=== PATIENT | male | born 1960 | race Caucasian/White ===

== ENCOUNTER 2017-12-24 19:01 | Emergency (ER) | payer OTHER, SELFPAY ==
[2017-12-24 19:09] VITALS: BP 170/92; PULSE 66; RESP 20; TEMP 36.9; O2SAT 100; BMI 23.0
--- NOTE | 2017-12-24 19:12 | ED_ITS ---
HPI - Neck Pain/Injury General Chief Complaint: Neck Pain/Injury Stated Complaint: right side neck/jaw pain since yesterday Time Seen by Provider: 12/24/17 19:11 Source: patient Mode of arrival: ambulatory Limitations: no limitations History of Present Illness HPI Narrative: Otherwise healthy 57-year-old male here for evaluation of right- sided neck pain. He states that has been going on for the past couple days. No sinus congestion or sore throat or ear pain or dental pain. He has never had anything like this before. Has been taking [id number] ibuprofen which seems to help the symptoms but they come back after approximately 5 hr. Related Data Allergies Allergy/AdvReac Type Severity Reaction Status Date / Time No Known Drug Allergies Allergy Verified 12/24/17 19:11 Review of Systems Constitutional Denies fever(s) and Denies headache(s) ENT Ears, Nose, Mouth, and Throat: Denies otalgia, Denies facial pain, Denies headache(s), Reports neck pain (Right-sided), Denies sinus pain, Denies sinus pressure and Denies sore throat Cardiovascular Denies chest pain and Denies dyspnea Respiratory Denies cough and Denies dyspnea Musculoskeletal Denies myalgias, Denies arthralgias and Reports neck pain (Right-sided) Integumentary/Breasts Denies lesions and Denies rash Neurologic Denies headache(s) [facility] Medical History Healthy adult (Acute) Surgical History No pertinent past surgical history (Acute) Social History Smoking Status: Never smoker Exam Initial Vital Signs Initial Vital Signs: Vital Signs Temperature 98.4 F 12/24/17 19:09 Pulse Rate 66 12/24/17 19:09 Respiratory Rate 20 12/24/17 19:09 Blood Pressure 170/92 H 12/24/17 19:09 Pulse Oximetry 100 12/24/17 19:09 Const General: cooperative, healthy appearing, comfortable, well developed, well groomed and No acute distress Orientation: alert, awake and oriented x3 HENMT Head: normal to inspection and normocephalic Ears: TM's normal bilaterally Nose: external nose normal Face and sinus: normal facial exam, sinuses nontender and no abrasions Mouth: oral mucosae normal Teeth and gingiva: other (Bottom right 2nd molar cracked tooth not tender to palpation) Throat: other (Right-sided anterior cervical and submandibular sub cm freely movable tender lymph nodes) Resp Effort & Inspection: normal respiratory effort Auscultation: clear to auscultation bilaterally Skin Lesions: no lesions Rashes: no rashes Psych Appearance: grossly normal and well kempt Course Vital Signs - 8 hr 12/24/17 19:09 Temperature 98.4 F Pulse Rate 66 Respiratory Rate 20 Blood Pressure 170/92 H Pulse Oximetry 100 MDM - Neck Pain/Injury MDM Narrative Medical decision making narrative: Patient with 2 right-sided anterior cervical and submandibular lymph nodes. No overlying skin changes. Does have a cracked bottom right molar however this is not tender to palpation and no signs of dental infection. The rest of his exam was unremarkable. I do suspect that his symptoms are the result of lymphadenopathy. We did discuss this. Did discuss the use of anti-inflammatories and Tylenol. We also discussed the use of decongestants. He was given return precautions. He expressed understanding and agreement with plan. Discharge Plan Departure Patient Disposition: Home Clinical Impression: Lymphadenopathy Instructions: DI for Lymphadenopathy Activity Restrictions/Additional Instructions: You can do 600 mg of Motrin/ibuprofen/Advil every 8 hr. In addition to this you can do 650 mg which is 2 regular strength Tylenol every 4 hr. If you start to feel congested or have a sore throat you can start taking a decongestant such as Claritin/Lori/Zyrtec Ortho generic version of 1 of these medications. Call your primary care doctor for follow-up. All of these medications can be purchased [id number] Stand Alone Forms: Work/School Restrictions
--- NOTE | 2017-12-24 19:32 | PC.NURSE ---
right neck pain under jaw. node swollen.
--- NOTE | 2017-12-28 17:51 | PC.NURSE ---
Attempted follow up call,no answer
== END 2017-12-24 19:34 | disposition home or self-care (01) ==
PROVIDERS: Emergency Provider Emergency Medicine
DX: R59.1 Generalized enlarged lymph nodes (principal)
CPT/HCPCS: 99282

== ENCOUNTER 2020-07-28 12:17 | Emergency (ER) | payer OTHER, SELFPAY ==
[2020-07-28 12:33] VITALS: BP 144/94; PULSE 74; RESP 12; TEMP 37; O2SAT 98; BMI 23.0
--- NOTE | 2020-07-28 12:40 | PC.NURSE ---
wound culture of neck collected, sent to lab with triage
--- NOTE | 2020-07-28 14:31 | ED.WOUNDLAC ---
HPI - Wound/Laceration General Chief Complaint: Wound/Laceration Stated Complaint: BACK OF HEAD INFECTION Time Seen by Provider: 07/28/20 12:20 Source: patient Mode of arrival: Ambulatory Limitations: no limitations History of Present Illness HPI narrative: 60-year-old male nonsmoker with noncontributory medical history presents with a chief complaint of a painful bump on the back of his neck that has been draining foul-smelling fluid for the past few days and has become increasingly painful. It hurts him worse to move his head or neck and improves with rest. He denies any fever or chills nor nausea, vomiting or diarrhea. He denies any trouble swallowing or breathing. He denies any neurologic symptoms such as numbness, tingling, weakness nor blurred vision or trouble with speech. He states that he thinks he had a small ?pimple ?many years ago but otherwise denies any significant history of skin infection. Onset (ago): day(s) Location: neck Body four view annotation: 1. Patient tetanus UTD: Yes Associated symptoms: pain Treatments prior to arrival: bandage Related Data Previous Rx's Medication Instructions Recorded doxycycline hyclate 100 mg PO BID #20 tab 07/28/20 hydrocodone-acetaminophen 1 tab PO Q4-6H PRN #10 tab 07/28/20 Allergies Allergy/AdvReac Type Severity Reaction Status Date / Time No Known Drug Allergies Allergy Verified 07/28/20 12:39 Review of Systems Constitutional Constitutional: Denies chills, Denies fatigue, Denies fever(s), Denies frequent falls, Denies lethargy and Denies weakness Eyes Eyes: Denies change in vision, Denies eye discharge, Denies irritation and Denies loss of vision ENT Ears, Nose, Mouth, and Throat: Denies change in voice, Denies dizziness, Denies neck pain, Denies sore throat and Denies throat swelling Cardiovascular Cardiovascular: Denies chest pain, Denies irregular heart rhythm, Denies lightheadedness, Denies palpitations, Denies dyspnea, Denies dyspnea on exertion and Denies orthopnea Respiratory Respiratory: Denies cough, Denies dyspnea, Denies dyspnea on exertion and Denies wheezing Gastrointestinal Gastrointestinal: Denies abdominal pain, Denies change in bowel habits, Denies diarrhea, Denies nausea and Denies vomiting Musculoskeletal Musculoskeletal: Denies neck pain and Denies numbness Integumentary/Breasts Skin/Breast: Denies pruritus, Reports erythema, Denies rash, Reports skin pain, Reports skin swelling and Reports wounds Neurologic Neurologic: Denies behavioral changes, Denies confusion, Denies dizziness, Denies frequent falls, Denies loss of vision, Denies numbness and Denies weakness Psychiatric Psychiatric: Denies anxiety, Denies behavioral changes, Denies confusion, Denies depression, Denies homicidal ideation and Denies suicidal ideation Endocrine Endocrine: Denies fatigue, Denies flushing and Denies palpitations Hematologic/Lymphatic Hematologic/Lymphatic: Denies easy bruising Allergic/Immunologic Allergic/Immunologic: Denies urticaria, Denies throat swelling and Denies wheezing Patient History Medical History Healthy adult Surgical History No pertinent past surgical history Social History Smoking Status: Never smoker Smoking Status: Never smoker alcohol intake frequency: 0-2 drinks per day Substance Use Type: does not use Exam Narrative Exam Narrative: GEN: AOx3 and in mild distress EYES: Pupils are equal, round, and reactive to light and accommodation. Extraoccular muscles are intact bilaterally. There is no subconjunctival hemorrhage or exudate. NECK: 2 x 3 cm fluctuant painful mass at the base of the neck with some spontaneously draining pustules consistent with abscess or infected sebaceous cyst. Very minimal surrounding erythema or induration. CHEST: Lungs are clear to auscultation bilaterally and free of wheezes, rales, or rhonchi. Heart rate is regular rhythm, there are no murmurs, clicks, rubs, or gallops. There is no chest wall tenderness. ABD: Abdomen is soft and nontender. There is no guarding or rebound. Bowel sounds are normal in all 4 quadrants. There is no mass or organomegaly. EXT: Full painless ROM of all extremities with no loss of sensation or strength. SKIN: Warm, pink, and dry. No erythema or rash Initial Vital Signs Initial Vital Signs: Vital Signs Temperature 98.6 F 07/28/20 12:33 Pulse Rate 74 07/28/20 12:33 Respiratory Rate 12 07/28/20 12:33 Blood Pressure 144/94 H 05/11/21 12:33 Pulse Oximetry 98 07/28/20 12:33 Procedures Abscess I/D I&D #1: Site: neck Local Anesthetic: lidocaine 1% and with epi Amount of anesthesia used (mL): 4 Amount of fluid expressed (mL): 10 (Sebaceous material as well) Irrigation: No Packing used?: none Complications: pain Course Orders Ordered: Discontinued Medications Lidocaine/Epinephrine (Lidocaine 1% W/Epi) 1 ml SUBCUT NOW ONE Stop: 07/28/20 14:37 Last Admin: 07/28/20 15:18 Dose: 1 ml Documented by: CLOTILDE Vital Signs Vital signs: Vital Signs - 8 hr 07/28/20 12:33 Temperature 98.6 F Pulse Rate 74 Respiratory Rate 12 Blood Pressure 144/94 H Pulse Oximetry 98 MDM - Wound/Laceration MDM Narrative Medical decision making narrative: History and physical exam are consistent with an infected sebaceous cyst. It is large but was appropriately drained patient feels significant improvement and increased range of motion after the procedure. He is given extensive return precautions and has had his questions answered to his apparent satisfaction Discharge Plan Departure Patient Disposition: Home Clinical Impression: Abscess Instructions: DI for Skin Abscess Activity Restrictions/Additional Instructions: *You have been diagnosed with [spontaneously draining posterior neck abscess after incision and drainage.] *What to do: *Please continue to take your regular medications as directed. [x] New medication prescriptions sent to your pharmacy: [ [facility]] [ ] New medication written as a paper prescription [ ] No new medications given *Please follow up with your primary care provider in 2-3 days, call for an appointment. Let them know you were seen in the Emergency Department and that we ask that you be seen in follow up. We will electronically transmit a record of today's note if your PCP is in our system *If you do not have a primary care provider please contact the [facility] Resource line at [phone]. They will ask some questions about your medical history and help get you set up with a doctor in the community. *Return to Emergency Department if you should have any new, worsening or concerning symptoms, such as [fever greater than 101 F, shaking chills, worsening pain, persistent vomiting or other bothersome symptoms] Prescriptions: New doxycycline hyclate 100 mg tablet 100 mg PO BID Qty: 20 RF: 0 hydrocodone-acetaminophen 5-325 mg tablet 1 tab PO Q4-6H PRN (Reason: pain) Qty: 10 RF: 0
[2020-07-28 15:10] VITALS: BP 169/98; PULSE 73; RESP 16; O2SAT 96
[2020-07-28] MEDS: LIDOCAINE 1% W/EPI 1 ML SUBCUT (15:18)
== END 2020-07-28 15:15 | disposition home or self-care (01) ==
PROVIDERS: Emergency Provider Emergency Medicine
DX: L02.11 Cutaneous abscess of neck (principal)
CPT/HCPCS: 10060; 87070; 87075; 87077; 87186; 87205; 99282; 99283

== ENCOUNTER 2024-10-19 19:07 | Emergency (ER) | payer OTHER, SELFPAY ==
[2024-10-19] VITALS (11 sets, daily range): BP systolic 144–181; BP diastolic 82–95; PULSE 65–91; RESP 15–21; TEMP 36.6; O2SAT 94–98; BMI 23.7
--- NOTE | 2024-10-19 19:22 | DI.CT.S_ITS ---
PROCEDURE: CT HEAD/BRAIN WO CON INDICATIONS: trauma TECHNIQUE: Noncontrast 4.5 mm thick angled axial sections acquired from the foramen magnum to the vertex, with coronal and sagittal reformats. For radiation dose reduction, the following was used: automated exposure control, adjustment of mA and/or kV according to patient size. COMPARISON: None. FINDINGS: Image quality: Diagnostic. CSF spaces: Basal cisterns are patent. No extra-axial fluid collections. The ventricles are symmetric in size and shape. Brain: No intracranial bleeds or mass effect. There is cerebral volume loss, with resultant ventricular and sulcal prominence. There are periventricular and deep white matter chronic small vessel ischemic changes. There is intracranial internal carotid artery atherosclerosis. Skull and face: Calvarium and visualized facial bones appear intact, without suspicious lesions. Right periorbital soft tissue swelling and laceration. Sinuses: Visualized sinuses and mastoids are clear. IMPRESSION: 1. CT head without acute intracranial abnormalities or acute calvarial fractures. 2. Age-related senescent changes and sequela of chronic small vessel ischemic disease. 3. Right periorbital soft tissue swelling and laceration without underlying facial fracture. Please see dedicated CT facial bones examination for further details. Dictated by: Manjeet Victor M.D. on 10/19/2024 at 20:31 Approved by: Manjeet Victor M.D. on 10/19/2024 at 20:32
--- NOTE | 2024-10-19 19:22 | DI.CT.S_ITS ---
PROCEDURE: CT FACIAL BONES WO CON INDICATIONS: fall, trauma TECHNIQUE: Noncontrast 2.5 mm thick axial images acquired from the mandible through the frontal sinuses, with coronal and sagittal reformatting. For radiation dose reduction, the following was used: automated exposure control, adjustment of mA and/or kV according to patient size. COMPARISON: None. FINDINGS: Image quality: Diagnostic Bones and teeth: Orbital phillips are intact. Sinus phillips show no fracture or deformity. Mildly displaced right nasal bone fracture with possible nondisplaced fracture of the osseous nasal septum. Left nasal bone is intact. Visualized portions of the mandible demonstrate no fractures or subluxation. Zygomatic arches are intact. Pterygoid plates are intact. Visualized portions of the skull base and auditory canals are intact. Sinuses: Paranasal sinuses are aerated, without fluid levels, mucosal thickening, or mucoceles. Mastoid air cells are aerated. Soft tissues: Moderate right periorbital soft tissue swelling and laceration. Right globe is intact. Elsewhere, no other edema, masses, or fluid collections. No enlarged lymph nodes. No soft tissue lacerations or debris. Vascular: Visualized vascular structures appear normal in the absence of contrast. Bony vascular foramina and canals are intact. IMPRESSION: Right periorbital soft tissue swelling and laceration with associated right nasal bone fracture. Possible nondisplaced fracture of the osseous nasal septum. Dictated by: Manjeet Victor M.D. on 10/19/2024 at 20:32 Approved by: Manjeet Victor M.D. on 10/19/2024 at 20:34
--- NOTE | 2024-10-19 19:23 | PC.NURSE ---
Modified trauma. Patient denies any c-spine tenderness.
--- NOTE | 2024-10-19 21:11 | ED_ITS ---
HPI - General Adult General Chief complaint: Trauma Stated complaint: fell injury on eye Time Seen by Provider: 10/19/24 21:11 Mode of arrival: Ambulatory History of Present Illness HPI narrative: 64-year-old male fell off of an 8 ft ladder prior to arrival, denies loss of consciousness, increasing headache, no vomiting, has right anterior lateral chest pain. Denies upper mid lower back pain. Denies shortness of breath. No visual complaints. Does not take blood thinner medications. Denies upper extremity and lower extremity injuries. Denies pain to his upper mid lower back. Denies abdominal flank pelvic area discomfort. Related Data Previous Rx's ?Medication ?Instructions ?Recorded doxycycline hyclate 100 mg tablet 100 mg PO BID #20 ta bs 07/28/20 hydrocodone 5 mg-acetaminophen 325 1 tab PO Q4-6H PRN pain #10 tabs 07/28/20 mg tablet Allergies Allergy/AdvReac Type Severity Reaction Status Date / Time No Known Drug Allergies Allergy Verified 10/19/24 19:20 Patient History Medical History (Updated 10/20/24 @ 01:24 by Mark Faria MD) Healthy adult Surgical History No pertinent past surgical history Social History Smoking Status: Never smoker Smoking Status: Never smoker alcohol intake frequency: 0-2 drinks per day Exam Narrative Exam Narrative: GENERAL: Well-developed patient, in mild distress. HEAD: Atraumatic. Normocephalic. Laceration to the right eyebrow area, upside down Capital L like shape to orbicularis muscle, no visible bone or foreign body. EYES: Pupils equal round and reactive. Extraocular motions intact. No scleral icterus. No injection or drainage. ENT: Nose without bleeding, purulent drainage. Throat without erythema, tonsillar hypertrophy or exudate. Airway patent. NECK: Trachea midline. Non tender CARDIOVASCULAR: Regular rate and rhythm without murmurs, gallops, or rubs. RESPIRATORY: Clear to auscultation. Breath sounds equal bilaterally. No wheezes, rales, or rhonchi. Tenderness anterolateral right ribs without crepitance, no retractions. GASTROINTESTINAL: Abdomen soft, non-tender, nondistended. EXTREMITIES: No edema or joint tenderness. BACK: Nontender without deformity or crepitance. No flank tenderness. NEURO: AOx3. Motor functions grossly nonfocal. SKIN: No rash or erythema of visible areas Initial Vital Signs Initial Vital Signs: Vital Signs Temperature 98 F 10/19/24 19:17 Pulse Rate 71 10/19/24 19:17 Respiratory Rate 16 10/19/24 19:17 Blood Pressure 181/95 H 10/19/24 19:17 Pulse Oximetry 98 10/19/24 19:17 Oxygen Delivery Method Room Air 10/19/24 19:17 Procedures Laceration Repair Laceration 1: Time of procedure: 03:20 Site: face (Eyebrow upside down Capital L-shaped laceration) Side (If applicable): right Size (cm): 3.5 Description: irregular Depth: involves muscle layer Local Anesthetic: lidocaine 1% and with epi Amount of anesthesia used (mL): 6 Pre-repair: irrigated extensively Skin layer closed with: nylon Skin layer suture size: 5-0 Number of sutures: 9 Technique: simple, interrupted Subcutaneous layer closed with: vicryl Subcutaneous layer suture size: 4-0 Number of sutures: 2 Muscle layer closed with: vicryl Muscle layer suture size: 4-0 Number of sutures: 2 Technique: simple, interrupted Course Orders Ordered: ED Orders 10/19/24 19:22 CT facial bones wo con Stat CT head/brain wo con Stat 10/19/24 21:15 XR chest 1V Stat 10/19/24 22:22 CT chest abd pel w con Stat 10/19/24 22:41 CBC Auto Diff [Complete Blood Count AUTO DIFF] Stat CMP [Comprehensive Metabolic Panel] Stat Lipase Stat Discontinued Medications Acetaminophen (Acetaminophen 325 Mg Tablet) 975 mg PO NOW ONE Stop: 10/19/24 23:15 Last Admin: 10/20/24 02:01 Dose: Not Given Documented By: AB Hydrocodone Bitart/Acetaminophen (Hydrocodone/Acet 5/325 Prepack) 1 bottle MISC DIRECTED ONE Stop: 10/20/24 02:01 Last Admin: 10/20/24 02:08 Dose: 1 bottle Documented By: Albuterol (Albuterol Hfa Prepack) 1 box MISC DIRECTED ONE Stop: 10/20/24 02:01 Last Admin: 10/20/24 02:08 Dose: 1 box Documented By: Bacitracin (Bacitracin Oint 0.9 Gm Pckt) 1 applic TOP NOW ONE Stop: 10/20/24 01:49 Last Admin: 10/20/24 02:00 Dose: 1 applic Documented By: Diphtheria/Tetanus/Acell Pertussis (Tet,Diph,Pertuss(Acell),Vac/Pf 0.5 Ml Syringe) 0.5 ml IM .ONCE ONE Stop: 10/19/24 22:23 Last Admin: 10/19/24 23:08 Dose: 0.5 ml Documented By: WAN Ketorolac Tromethamine (Ketorolac 30 Mg/Ml Vial) 15 mg IV NOW ONE Stop: 10/19/24 23:21 Last Admin: 10/19/24 23:23 Dose: 15 mg Documented By: WAN Vital Signs Vital signs: Vital Signs - 8 hr 10/19/24 19:54 10/19/24 19:54 10/19/24 20:00 Pulse Rate 86 75 Respiratory Rate 16 Blood Pressure 181/92 H Pulse Oximetry 98 98 Oxygen Delivery Method 10/19/24 20:00 10/19/24 20:30 10/19/24 21:00 Pulse Rate 79 72 Respiratory Rate 18 16 Blood Pressure 163/83 H Pulse Oximetry 98 96 Oxygen Delivery Method 10/19/24 21:30 10/19/24 21:58 10/19/24 21:58 Pulse Rate 69 75 Respiratory Rate 21 Blood Pressure 168/88 H Pulse Oximetry 97 98 Oxygen Delivery Method 10/19/24 22:00 10/19/24 22:30 10/19/24 22:30 Pulse Rate 73 74 Respiratory Rate 21 17 Blood Pressure 162/93 H Pulse Oximetry 98 97 Oxygen Delivery Method 10/19/24 23:00 10/19/24 23:00 10/19/24 23:34 Pulse Rate 65 91 H Respiratory Rate 15 17 Blood Pressure 144/82 H Pulse Oximetry 96 94 Oxygen Delivery Method Room Air Room Air 10/20/24 00:00 10/20/24 00:30 10/20/24 00:46 Pulse Rate 72 65 65 Respiratory Rate 16 14 15 Blood Pressure Pulse Oximetry 95 95 96 Oxygen Delivery Method Room Air Room Air Room Air 10/20/24 00:46 10/20/24 01:00 10/20/24 01:00 Pulse Rate 74 Respiratory Rate 19 Blood Pressure 140/80 162/81 H Pulse Oximetry 98 Oxygen Delivery Method 10/20/24 01:30 10/20/24 01:30 10/20/24 02:00 Pulse Rate 66 64 Respiratory Rate 17 16 Blood Pressure 155/85 H Pulse Oximetry 97 97 Oxygen Delivery Method 10/20/24 02:00 10/20/24 02:04 10/20/24 02:04 Pulse Rate 67 Respiratory Rate 23 Blood Pressure 154/87 H 153/89 H Pulse Oximetry 96 Oxygen Delivery Method Room Air Medical Decision Making Lab Data Lab results reviewed: Yes I reviewed the patient's lab results. Lab results narrative: White blood cell count 8600, hemoglobin 12.8, platelets adequate. Glucose 108, renal function, serum CO2, potassium normal. Slight decreased sodium 136 only. AST 60 slight elevation, other liver functions normal. Lipase 50 normal. 10/19/24 22:41 10/19/24 22:41 Labs: Lab Results 10/19/24 Range/Units 22:41 WBC 8.6 (4.5-11.0) X10^3/uL RBC 4.01 L (4.5-5.9) X10^6/uL Hgb 12.8 L (13.5-17.5) g/dL Hct 38.0 L (41-53) % MCV 94.8 (80-100) fL MCH 31.9 (26-34) PG MCHC 33.6 (30-36) % RDW 13.1 (11.6-14.8) % Plt Count 309 (150-400) X10^3/uL Neut % (Auto) 71.3 (50-75) % Lymph % (Auto) 20.0 L (25-40) % [place] % (Auto) 8.1 (3-14) % Eos % (Auto) 0.1 L (2-4) % Baso % (Auto) 0.5 (0-2) % Neut # (Auto) 6100 (3817-3375) /uL Lymph # (Auto) 1700 (0106-2697) /uL [place] # (Auto) 700 (0-900) /uL Eos # (Auto) 0 (0-450) /uL Baso # (Auto) 0 (0-100) /uL Sodium 136 L (137-145) mmol/L Potassium 3.8 (3.4-5.1) mmol/L Chloride 104 (98-107) mmol/L Carbon Dioxide 28 (22-32) mmol/L BUN 19 (9-20) mg/dL Creatinine 0.55 L (0.66-1.25) mg/dL Estimated GFR > 60 (>60) mL/min BUN/Creatinine Ratio 34.5 H (6-22) Glucose 108 H (70-99) mg/dL Calcium 9.0 (8.4-10.2) mg/dL Total Bilirubin 0.7 (0.2-1.3) mg/dL AST 60 H (17-59) IU/L ALT 31 (<50) IU/L Alkaline Phosphatase 57 (38-126) U/L Total Protein 7.0 (6.3-8.2) g/dL Albumin 4.2 (3.5-5.0) g/dL Globulin 2.8 (1.7-4.1) g/dL Albumin/Globulin Ratio 1.5 (1.0-2.8) Lipase 50 (23-300) U/L Imaging Data Chest x-ray: Radiologist's Impression: [address] [address] XRay Report Signed Patient: Marcello Diggs MR#: [id number] : 1960 Acct:[id number] Age/Sex: 64 / M Date of Service: 10/19/24 Loc: ED Accession Number: [id number] Procedure: XR chest 1V Ordering Provider: Mark Faria MD PROCEDURE: XR CHEST 1V INDICATIONS: right sided chest pain after fall from ladder TECHNIQUE: One view of the chest was acquired. COMPARISON: None. FINDINGS: Surgical changes and devices: None. Lungs and pleura: Lungs are clear. No pleural effusions or pneumothorax. Mediastinum: Mediastinal contours appear normal. Heart size is normal. Bones and chest wall: There are minimally displaced lateral right 8th and 9th rib fractures. No suspicious bony lesions. Overlying soft tissues appear unremarkable. IMPRESSION: Acute, minimally displaced lateral right 8th and 9th rib fractures. No pneumothorax. No acute cardiopulmonary abnormalities. Dictated by: Manjeet Victor M.D. on 10/19/2024 at 21:35 Approved by: Manjeet Victor M.D. on 10/19/2024 at 21:36 CT scan - head: Radiologist's Impression: [address] [address] [address] Scan Report Signed Patient: Marcello Diggs MR#: [id number] : 1960 Acct:[id number] Age/Sex: 64 / M Date of Service: 10/19/24 Loc: ED Accession Number: [id number] Procedure: CT head/brain wo con Ordering Provider: Mark Faria MD PROCEDURE: CT HEAD/BRAIN WO CON INDICATIONS: trauma TECHNIQUE: Noncontrast 4.5 mm thick angled axial sections acquired from the foramen magnum to the vertex, with coronal and sagittal reformats. For radiation dose reduction, the following was used: automated exposure control, adjustment of mA and/or kV according to patient size. COMPARISON: None. FINDINGS: Image quality: Diagnostic. CSF spaces: Basal cisterns are patent. No extra-axial fluid collections. The ventricles are symmetric in size and shape. Brain: No intracranial bleeds or mass effect. There is cerebral volume loss, with resultant ventricular and sulcal prominence. There are periventricular and deep white matter chronic small vessel ischemic changes. There is intracranial internal carotid artery atherosclerosis. Skull and face: Calvarium and visualized facial bones appear intact, without suspicious lesions. Right periorbital soft tissue swelling and laceration. Sinuses: Visualized sinuses and mastoids are clear. IMPRESSION: 1. CT head without acute intracranial abnormalities or acute calvarial fractures. 2. Age-related senescent changes and sequela of chronic small vessel ischemic disease. 3. Right periorbital soft tissue swelling and laceration without underlying facial fracture. Please see dedicated CT facial bones examination for further details. Dictated by: Manjeet Victor M.D. on 10/19/2024 at 20:31 Approved by: Manjeet Victor M.D. on 10/19/2024 at 20:32 CT face noncontrast: Radiologist's Impression: [address] [address] [address] Scan Report Signed Patient: Marcello Diggs MR#: [id number] : 1960 Acct:[id number] Age/Sex: 64 / M Date of Service: 10/19/24 Loc: ED Accession Number: [id number] Procedure: CT facial bones wo con Ordering Provider: Mark Faria MD PROCEDURE: CT FACIAL BONES WO CON INDICATIONS: fall, trauma TECHNIQUE: Noncontrast 2.5 mm thick axial images acquired from the mandible through the frontal sinuses, with coronal and sagittal reformatting. For radiation dose reduction, the following was used: automated exposure control, adjustment of mA and/or kV according to patient size. COMPARISON: None. FINDINGS: Image quality: Diagnostic Bones and teeth: Orbital phillips are intact. Sinus phillips show no fracture or deformity. Mildly displaced right nasal bone fracture with possible nondisplaced fracture of the osseous nasal septum. Left nasal bone is intact. Visualized portions of the mandible demonstrate no fractures or subluxation. Zygomatic arches are intact. Pterygoid plates are intact. Visualized portions of the skull base and auditory canals are intact. Sinuses: Paranasal sinuses are aerated, without fluid levels, mucosal thickening, or mucoceles. Mastoid air cells are aerated. Soft tissues: Moderate right periorbital soft tissue swelling and laceration. Right globe is intact. Elsewhere, no other edema, masses, or fluid collections. No enlarged lymph nodes. No soft tissue lacerations or debris. Vascular: Visualized vascular structures appear normal in the absence of contrast. Bony vascular foramina and canals are intact. IMPRESSION: Right periorbital soft tissue swelling and laceration with associated right nasal bone fracture. Possible nondisplaced fracture of the osseous nasal septum. Dictated by: Manjeet Victor M.D. on 10/19/2024 at 20:32 Approved by: Manjeet Victor M.D. on 10/19/2024 at 20:34 CT chest abdomen pelvis with IV contrast: Radiologist's Impression: [place] [address] CT Scan Report Signed Patient: Marcello Diggs MR#: [id number] : 1960 Acct:[id number] Age/Sex: 64 / M Date of Service: 10/19/24 Loc: ED Accession Number: [id number] Procedure: CT chest abd pel w con Ordering Provider: Mark Faria MD PROCEDURE: CT CHEST ABD PEL W CON INDICATIONS: felll from 8' ladder, right rib fractures TECHNIQUE: After the administration of intravenous contrast, 5 mm thick sections acquired from the lung apices to the symphysis. 2.5 mm thick coronal and sagittal reformats were acquired. Additional 7 mm thick coronal maximum intensity projection (MIP) reformats acquired through the lungs. Optional 10-minute delayed imaging may be performed from the kidneys to the bladder. For radiation dose reduction, the following was used: automated exposure control, adjustment of mA and/or kV according to patient size. COMPARISON: [facility], CR, XR CHEST 1V, 10/19/2024, 21:14. FINDINGS: Image quality: Diagnostic. CHEST: Lower Neck: No enlarged lymph nodes. Thyroid: No thyroid nodules which require sonographic follow up, per consensus guidelines. Axillae: No enlarged lymph nodes. Chest Wall: No subcutaneous gas. Lungs and Pleura: No pulmonary contusions or lacerations. No acute airspace opacities. No pneumothorax or hemothorax. Mild bibasilar atelectasis. Mediastinum: No mediastinal hematomas. Heart size is normal. No pericardial effusion. Thoracic aorta and pulmonary arteries demonstrate normal size and enhancement. No mediastinal or hilar adenopathy. There is mild circumferential wall thickening of the distal esophagus likely representing esophagitis. Small hiatal hernia. ABDOMEN: Liver: No lacerations. Gallbladder: No radiopaque gallstones or wall thickening. Biliary ducts: No biliary dilation. Pancreas: Homogenous enhancement. Spleen: Homogenous enhancement without laceration or hematoma. Adrenal Glands: Symmetric enhancement. Kidneys and Ureters: Symmetric enhancement. No hydronephrosis. No solid mass. No complex renal cystic lesion which requires follow up. Stomach and Bowel: Normal colonic caliber, without significant wall thickening. No evidence for small bowel obstruction or associated inflammatory changes. The appendix is not definitively visualized. However, no secondary findings of acute inflammation are noted in the right lower quadrant. Peritoneum: No abnormal intraperitoneal fluid. No free air. Ventral Wall: There is a fat-containing umbilical hernia without acute inflammation. Abdominal Nodes: No retroperitoneal or mesenteric adenopathy by size criteria. Vessels: Aorta and inferior vena cava are normal in size. PELVIS: Pelvic Organs: Unremarkable. Bladder: Normal thickness. Pelvic Nodes: No enlarged lymph nodes. Miscellaneous: No inguinal hernias are seen. Bones: Pelvic ring and hip joints appear intact. Acute, minimally displaced lateral right 8th and 9th rib fractures. No acute compression fractures of the imaged spine. IMPRESSION: Acute, minimally displaced lateral right 8th and 9th rib fractures. No evidence for pneumothorax. No evidence for pulmonary contusion. Otherwise, no evidence for traumatic injury to the remainder of the visualized chest, abdomen, or pelvis. Small hiatal hernia with mild circumferential distal esophageal wall thickening. This may represent sequela of reflux esophagitis. Other chronic/non-acute findings as above. Dictated by: Manjeet Victor M.D. on 10/20/2024 at 0:25 Approved by: Manjeet Victor M.D. on 10/20/2024 at 0:32 MDM Narrative Medical decision making narrative: 64-year-old male fell from 8 ft height ladder with right anterolateral chest pain, laceration to the right forehead area, increasing headache. CT head and face ordered from triage. No neck pain, no upper mid lower back pain, no obvious extremity injuries. Keep NPO. Chest x-ray showed no pneumothorax but minimally displaced lateral right 8th and 9th rib fractures. See radiology report. CT head showed no intracranial abnormalities, right periorbital soft tissue swelling/laceration without underlying facial fracture. See radiology report. CT face showed right periorbital soft tissue swelling and laceration with associated right nasal bone fracture, possible nondisplaced fracture osseous nasal septum. See radiology report Lab data: White blood cell count 8600, hemoglobin 12.8, platelets adequate. Glucose 108, renal function, serum CO2, potassium normal. Slight decreased sodium 136 only. AST 60 slight elevation, other liver functions normal. Lipase 50 normal. See laceration separate note, right periorbital multilayer laceration closure. Rib fractures without pneumothorax/hemothorax, incentive spirometer dispensed with teaching, albuterol home pack with spacer to take 2 puffs 4 times daily in the next week and then as needed. Home pack hydrocodone. Tetanus updated. Follow up with PCP advised for laceration wound check and respiratory check. Discharged home. Return precautions discussed. Discharge Plan Departure Patient Disposition: Home Clinical Impression: Fall from ladder, Laceration of face, Rib fractures, Nasal bone fractures Instructions: DI for Trauma Activity Restrictions/Additional Instructions: Fall from 8 ft ladder height, right lateral chest wall pain, rib fractures on imaging, without obvious lung injuries underlying. CT head and face showed nasal bone fractures but no intracranial injuries. No orbital or other facial fractures noted. Consider recheck with Otolaryngology ENT specialist in the next few days when swelling of the nose goes down, to see if you would desire any straightening like procedure. Try not to blow your nose or sneeze. Right eyebrow area laceration was complex, multilayer closure with 4 deep stitches in 9 skin sutures. Wound check in 2 days. Suture removal likely 5-7 days. Recheck nasal swelling position and laceration check in clinic in 2 days. Return to this/nearest emergency department for any change worsening symptoms or any concerns prior. Recheck lung exam and pneumonia symptoms at that time. Regarding your rib fractures, consider use of inhaler with spacer, albuterol 2 puffs 4 times daily for the next week or so and then as needed. Incentive spirometer to keep lungs expanded. Pain medications to take deep breaths more comfortably, to help prevent localized lung collapse and pneumonia. Prescriptions: No Action doxycycline hyclate 100 mg tablet 100 mg PO BID Qty: 20 0RF hydrocodone-acetaminophen 5-325 mg tablet 1 tab PO Q4-6H PRN (Reason: pain) Qty: 10 0RF Referrals: Radhames Mccullough MD [Physician, Ear, Nose, Throat] Stand Alone Forms: Patient Portal/API
--- NOTE | 2024-10-19 21:15 | DI.RAD.S_ITS ---
PROCEDURE: XR CHEST 1V INDICATIONS: right sided chest pain after fall from ladder TECHNIQUE: One view of the chest was acquired. COMPARISON: None. FINDINGS: Surgical changes and devices: None. Lungs and pleura: Lungs are clear. No pleural effusions or pneumothorax. Mediastinum: Mediastinal contours appear normal. Heart size is normal. Bones and chest wall: There are minimally displaced lateral right 8th and 9th rib fractures. No suspicious bony lesions. Overlying soft tissues appear unremarkable. IMPRESSION: Acute, minimally displaced lateral right 8th and 9th rib fractures. No pneumothorax. No acute cardiopulmonary abnormalities. Dictated by: Manjeet Victor M.D. on 10/19/2024 at 21:35 Approved by: Manjeet Victor M.D. on 10/19/2024 at 21:36
--- NOTE | 2024-10-19 22:22 | DI.CT.S_ITS ---
PROCEDURE: CT CHEST ABD PEL W CON INDICATIONS: felll from 8' ladder, right rib fractures TECHNIQUE: After the administration of intravenous contrast, 5 mm thick sections acquired from the lung apices to the symphysis. 2.5 mm thick coronal and sagittal reformats were acquired. Additional 7 mm thick coronal maximum intensity projection (MIP) reformats acquired through the lungs. Optional 10-minute delayed imaging may be performed from the kidneys to the bladder. For radiation dose reduction, the following was used: automated exposure control, adjustment of mA and/or kV according to patient size. COMPARISON: [facility], CR, XR CHEST 1V, 10/19/2024, 21:14. FINDINGS: Image quality: Diagnostic. CHEST: Lower Neck: No enlarged lymph nodes. Thyroid: No thyroid nodules which require sonographic follow up, per consensus guidelines. Axillae: No enlarged lymph nodes. Chest Wall: No subcutaneous gas. Lungs and Pleura: No pulmonary contusions or lacerations. No acute airspace opacities. No pneumothorax or hemothorax. Mild bibasilar atelectasis. Mediastinum: No mediastinal hematomas. Heart size is normal. No pericardial effusion. Thoracic aorta and pulmonary arteries demonstrate normal size and enhancement. No mediastinal or hilar adenopathy. There is mild circumferential wall thickening of the distal esophagus likely representing esophagitis. Small hiatal hernia. ABDOMEN: Liver: No lacerations. Gallbladder: No radiopaque gallstones or wall thickening. Biliary ducts: No biliary dilation. Pancreas: Homogenous enhancement. Spleen: Homogenous enhancement without laceration or hematoma. Adrenal Glands: Symmetric enhancement. Kidneys and Ureters: Symmetric enhancement. No hydronephrosis. No solid mass. No complex renal cystic lesion which requires follow up. Stomach and Bowel: Normal colonic caliber, without significant wall thickening. No evidence for small bowel obstruction or associated inflammatory changes. The appendix is not definitively visualized. However, no secondary findings of acute inflammation are noted in the right lower quadrant. Peritoneum: No abnormal intraperitoneal fluid. No free air. Ventral Wall: There is a fat-containing umbilical hernia without acute inflammation. Abdominal Nodes: No retroperitoneal or mesenteric adenopathy by size criteria. Vessels: Aorta and inferior vena cava are normal in size. PELVIS: Pelvic Organs: Unremarkable. Bladder: Normal thickness. Pelvic Nodes: No enlarged lymph nodes. Miscellaneous: No inguinal hernias are seen. Bones: Pelvic ring and hip joints appear intact. Acute, minimally displaced lateral right 8th and 9th rib fractures. No acute compression fractures of the imaged spine. IMPRESSION: Acute, minimally displaced lateral right 8th and 9th rib fractures. No evidence for pneumothorax. No evidence for pulmonary contusion. Otherwise, no evidence for traumatic injury to the remainder of the visualized chest, abdomen, or pelvis. Small hiatal hernia with mild circumferential distal esophageal wall thickening. This may represent sequela of reflux esophagitis. Other chronic/non-acute findings as above. Dictated by: Manjeet Victor M.D. on 10/20/2024 at 0:25 Approved by: Manjeet Victor M.D. on 10/20/2024 at 0:32
[2024-10-19 22:50] LABS: Add Manual Diff / Slide Review NO; Hematocrit 38.0 % (41-53); Hemoglobin 12.8 g/dL (13.5-17.5); Lymphocytes Absolute Auto 1700 /uL (1100-4500); Mean Corpuscular HGB Conc 33.6 % (30-36); Mean Corpuscular Hemoglobin 31.9 PG (26-34); Mean Corpuscular Volume 94.8 fL (80-100); Platelet Count 309 X10^3/uL (150-400)
[2024-10-19 23:01] LABS: Alanine Aminotransferase 31 IU/L (<50); Albumin 4.2 g/dL (3.5-5.0); Albumin Globulin Ratio 1.5 (1.0-2.8); Alkaline Phosphatase 57 U/L (38-126); Blood Urea Nitrogen 19 mg/dL (9-20); Calcium 9.0 mg/dL (8.4-10.2); Carbon Dioxide 28 mmol/L (22-32); Chloride 104 mmol/L (98-107); Estimated Glomerular Filt Rate > 60 mL/min (>60); Globulin 2.8 g/dL (1.7-4.1); Glucose 108 mg/dL (70-99); HEMOLYSIS < 15 (0-50); Lipase 50 U/L (23-300); Potassium 3.8 mmol/L (3.4-5.1); Sodium 136 mmol/L (137-145); Total Protein 7.0 g/dL (6.3-8.2)
[2024-10-19] MEDS: TET,DIPH,PERTUSS(ACELL),VAC/PF 0.5 ML SYRINGE IM (23:08)
[2024-10-19] MEDS: KETOROLAC 30 MG/ML VIAL 15 MG IV (23:23)
[2024-10-20] VITALS (7 sets, daily range): BP systolic 140–162; BP diastolic 80–89; PULSE 64–74; RESP 14–23; O2SAT 95–98
--- NOTE | 2024-10-20 00:49 | PC.NURSE ---
Pt states he does not need the Tylenol at this time.
[2024-10-20] MEDS: BACITRACIN OINT 0.9 GM PCKT 1 APPLIC TOP (02:00)
[2024-10-20] MEDS: ALBUTEROL HFA PREPACK 1 BOX MISC (02:08)
[2024-10-20] MEDS: HYDROCODONE/ACET 5/325 PREPACK 1 BOTTLE MISC (02:08)
== END 2024-10-20 02:22 | disposition home or self-care (01) ==
PROVIDERS: Emergency Provider Emergency Medicine
DX: S01.81XA Laceration without foreign body of other part of head, initial encounter (principal); S22.41XA Multiple fractures of ribs, right side, initial encounter for closed fracture; S02.2XXA Fracture of nasal bones, initial encounter for closed fracture; W11.XXXA Fall on and from ladder, initial encounter; Z23 Encounter for immunization
CPT/HCPCS: 12052; 70450; 70486; 71045; 71260; 74177; 80053; 83690; 85025; 90471; 96374; 99284; 90715; J1885; Q9967